=== PATIENT | male | born 1995 | race Two or more races ===

== ENCOUNTER 2023-12-06 16:18 | Emergency (ER) | payer OTHER ==
[~2023-12-06] VITALS: Ht 172.7 cm; Wt 75.0 kg
[2023-12-06 16:34] VITALS: TEMP 98.5; O2SAT 100
[2023-12-06 17:37] LABS: BASOPHILS % 0.8 % (0.0-2.0); EOSINOPHILS % 1.7 % (0.0-5.0); HEMATOCRIT. 53.4 % (42.0-52.0); HEMOGLOBIN. 18.5 g/dL (14.0-18.0); LYMPHOCYTES % 27.6 % (20.0-50.0); MEAN CORPUSCULAR HEMOGLOBIN 30.4 pg (28.0-32.0); MEAN CORPUSCULAR HGB CONC 34.7 g/dL (31.0-37.0); MEAN CORPUSCULAR VOLUME 87.6 fL (80.0-94.0); MEAN PLATELET VOLUME 8.4 fl (7.4-10.4); MONOCYTES % 7.3 % (2.0-8.0); NEUTROPHILS % 62.6 % (40.0-76.0); PLATELET 237 x1000/uL (130-400); RED BLOOD CELL COUNT 6.09 mill/uL (4.7-6.1); RED CELL DISTRIBUTION WIDTH 13.6 % (11.6-14.6)
[2023-12-06 17:38] LABS: DIFFERENTIAL COMMENT 1
[2023-12-06 17:41] LABS: CHLORIDE 105 mEq/L (98-107); POTASSIUM 4.7 mEq/L (3.5-5.1); SODIUM 140 mEq/L (136-145)
[2023-12-06 17:42] LABS: CARBON DIOXIDE 32 mEq/L (21-32)
[2023-12-06 17:47] LABS: CREATININE 1.3 mg/dL (0.6-1.3); GLUCOSE 84 mg/dL (70-105); UREA NITROGEN BLOOD 12 mg/dL (9-23)
[2023-12-06 17:49] LABS: ALANINE AMINOTRANSFERASE 80 IU/L (10-49); ALBUMIN 4.7 g/dL (3.2-4.8); ASPARTATE AMINOTRANSFERASE 35 IU/L (<34); BILIRUBIN DIRECT 0.2 mg/dL (<=3.0); BILIRUBIN TOTAL 0.8 mg/dL (0.1-1.0); PROTEIN TOTAL 7.7 g/dL (6.0-8.3)
[2023-12-06] MEDS ORDERED: KETOROLAC 30MG/ML VIAL IM STA (20:20)
[2023-12-06] MEDS ORDERED: IBUP-2029 MT (22:14)
[2023-12-06] MEDS: KETOROLAC 30MG/ML VIAL IM NR (22:30)
[2023-12-06 22:34] VITALS: BP 138/73; PULSE 84; RESP 16; O2SAT 98
== END 2023-12-06 22:35 | disposition home or self-care (01) ==
LOC: ER 16:18
DX: R10.9 Unspecified abdominal pain (principal)
CPT/HCPCS: 80076; 80048; 85025; 86850; 86900; 86901; 36415; 74176; 96372; 99285; J1885; Z7610